=== PATIENT | female | born 1995 | race Caucasian/White ===

== ENCOUNTER 2019-01-14 18:11 | Emergency (ER) | payer MEDICAID ==
[~2019-01-14] VITALS: Ht 162.6 cm; Wt 44.9 kg
[2019-01-14 18:27] VITALS: BP 106/55
== END 2019-01-15 00:17 | disposition home or self-care (01) ==
LOC: ER 18:11
DX: S63.91XA Sprain of unspecified part of right wrist and hand, initial encounter (principal); F17.210 Nicotine dependence, cigarettes, uncomplicated; W19.XXXA Unspecified fall, initial encounter; Y93.89 Activity, other specified; Y92.89 Other specified places as the place of occurrence of the external cause; Y99.8 Other external cause status
CPT/HCPCS: 73120

== ENCOUNTER 2019-11-03 23:17 | Emergency (ER) | payer MEDICAID ==
[~2019-11-03] VITALS: Ht 162.6 cm; Wt 48.5 kg
[2019-11-04 00:33] LABS: Urine Bacteria FEW /hpf (None Seen); Urine Blood Negative /uL (Negative); Urine Mucus FEW (None Seen); Urine Specific Gravity 1.029 (1.001-1.035); Urine WBC <1 /hpf (0 - 5)
[2019-11-04 01:06] LABS: Basophils # (auto) 0 10 ^3/uL (0-0.2); Basophils % (auto) 0.4 % (0.0-2.0); Eosinophils # (auto) 0.1 10 ^3/uL (0-0.8); Eosinophils % (auto) 0.9 % (0.0-7.0); Hematocrit 44.4 % (36.0-46.0); Hemoglobin 15.7 g/dL (12.2-16.2); Mean Corpuscular Hemoglobin 32.5 pg (28.0-32.0); Mean Corpuscular Hgb Conc. 35.5 g/dL (32.0-36.0); Mean Corpuscular Volume 91.7 fL (80.0-100.0); Monocytes # (auto) 0.6 10 ^3/uL (0-1.3); Monocytes % (auto) 6.3 % (0.0-12.0); Neutrophils % (auto) 69.4 % (37.0-80.0); Platelet Count (auto) 154 10^3/uL (140-450); Red Blood Cells 4.84 10^6/uL (4.0-5.20); Red Cell Distribution Width 13.1 % (11.8-14.3); White Blood Cell 8.7 10^3/uL (4.4-10.8)
[2019-11-04 01:21] LABS: INR 1.01 (0.9-1.15)
[2019-11-04 01:24] LABS: Albumin 4.4 g/dL (3.4-5.0); Calcium 8.9 mg/dL (8.5-10.1); Potassium 4.1 mmol/L (3.5-5.1)
[2019-11-04 01:27] LABS: BUN/Creatinine Ratio 23.1
[2019-11-04 01:30] LABS: Bilirubin, Total 0.4 mg/dL (0.2-1.0); Total Protein 7.9 g/dL (6.4-8.2)
[2019-11-04 02:39] VITALS: BP 101/63
[2019-11-04] MEDS ORDERED: IOHEXOL 300 MG/ML 100ML BOTTLE IJ ONE (02:42)
[2019-11-04] MEDS ORDERED: KETOROLAC TROMETH 15 mg/ml 1ML VL IV ONE ×2 (04:00→04:15)
== END 2019-11-04 04:50 | disposition home or self-care (01) ==
LOC: ER 23:17
DX: N94.89 Other specified conditions associated with female genital organs and menstrual cycle (principal); N83.201 Unspecified ovarian cyst, right side; K92.1 Melena; J41.0 Simple chronic bronchitis; F17.210 Nicotine dependence, cigarettes, uncomplicated
CPT/HCPCS: 36415; 74018; 74177; 80053; 81001; 81025; 85025; 85610; 96374; 99285; J1885; Q9967

== ENCOUNTER 2022-05-03 14:32 | Inpatient (IN) | payer MEDICAID ==
[~2022-05-03] VITALS: Ht 162.6 cm; Wt 45.6 kg
[2022-05-03] MEDS ORDERED: SODIUM CHLORIDE 0.9% 2,000 ML IV ONE (15:15)
[2022-05-03] MEDS ORDERED: LACTATED RINGER'S 2,000 ML IV ONE (15:15)
[2022-05-03] MEDS ORDERED: DEXTROSE (50%) 50ML SYRG IV PRN ×2 (15:30→19:15)
[2022-05-03] MEDS ORDERED: SODIUM BICARBONATE 50ML VIAL 150 ML in SOD CHL 0.45% 1,000 ML IV ONE (15:30)
[2022-05-03] MEDS ORDERED: SODIUM BICARBONATE 8.4 % INJ 50ML VIAL IV ONE ×2 (15:30→19:15)
[2022-05-03 16:07] LABS: Hematocrit 52.8 % (36.0-46.0); Hemoglobin 16.7 g/dL (12.2-16.2); Mean Corpuscular Hgb Conc. 31.6 g/dL (32.0-36.0); Mean Corpuscular Volume 98.1 fL (80.0-100.0); Red Blood Cells 5.38 10^6/uL (4.0-5.20); Red Cell Distribution Width 12.2 % (11.8-14.3)
[2022-05-03 16:15] LABS: White Blood Cell 56.1 10^3/uL (4.4-10.8)
[2022-05-03 16:16] LABS: Basophils % (manual) 0 (0.0-2.0); Blast Cells 0; Eosinophils % (manual) 0 (0-7); Myelocytes % 0; Promyelocytes % 0; Reactive Lymphocytes 0
[2022-05-03 16:26] LABS: Magnesium 2.9 mg/dL (1.6-2.6)
[2022-05-03 16:58] LABS: Urine Bacteria FEW /hpf (None Seen); Urine Blood 1+ /uL (Negative); Urine Specific Gravity 1.015 (1.001-1.035); Urine WBC 2 /hpf (0 - 5)
[2022-05-03 17:42] LABS: Band Neutrophils % (manual) 20; Lymphocytes % (manual) 10 (10.0-50.0); Monocytes % (manual) 8 (0-12)
[2022-05-03 17:43] LABS: Metamyelocytes % 1
[2022-05-03 17:47] LABS: Albumin 3.5 g/dL (3.4-5.0); Calcium 7.1 mg/dL (8.5-10.1); Potassium 5.1 mmol/L (3.5-5.1)
[2022-05-03 17:49] LABS: Bilirubin, Total 0.7 mg/dL (0.2-1.0); Total Protein 6.4 g/dL (6.4-8.2)
[2022-05-03 17:51] LABS: BUN/Creatinine Ratio 18.3
[2022-05-03] MEDS: ACCU-CHEK COMFORT CURVE STRIP VI SCH ×5 (17:55→22:57)
[2022-05-03] MEDS: InsuLIN R (HUMAN) 100 UNITS in SODIUM CHL 0.9% 99 ML IV SCH (17:59)
[2022-05-03] MEDS ORDERED: ONDANSETRON HCL 4 MG/2 ML VIAL IV PRN (18:45)
[2022-05-03] MEDS ORDERED: MORPHINE SULFATE INJ 2 MG/ml SYRG IV PRN (18:45)
[2022-05-03] MEDS ORDERED: NITROGLYCERIN 0.4 MG SL TAB SL PRN (18:45)
[2022-05-03] MEDS ORDERED: INSULIN LANTUS (GLARGINE) 1 /0.01ml (100units/ml) SC ONE (19:15)
[2022-05-03] MEDS ORDERED: POTASSIUM CHL 20MEQ/100ML 200 ML IV PRN (19:15)
[2022-05-03] MEDS ORDERED: MAGNESIUM SULFATE 1GM/100ML 200 ML IV ONE (19:15)
[2022-05-03] MEDS ORDERED: D5W/SOD CHL 0.45%/KCL 20MEQ 1,000 ML IV SCH ×2 (19:15)
[2022-05-03] MEDS ORDERED: POTASSIUM CHL 20MEQ/100ML 100 ML IV PRN (19:15)
[2022-05-03] MEDS ORDERED: VANCOMYCIN PER PHARMACY 0 MG IV SCH (19:30)
[2022-05-03] MEDS ORDERED: VANCOMYCIN 1GM/250ML 250 ML IV ONE (20:00)
[2022-05-03 20:06] LABS: Alcohol, Urine < 3.0 mg/dL (0-10); Amphetamine Screen, Urine NEGATIVE (NEGATIVE); Barbiturate Scree,Urine NEGATIVE (NEGATIVE); Benzodiazephine Screen, Urine NEGATIVE (NEGATIVE); Cannabinoid Screen, Urine POSITIVE (NEGATIVE); Cocaine Screen, Urine NEGATIVE (NEGATIVE); Opiate Scree,Urine NEGATIVE (NEGATIVE); Phencyclidine Screen, Urine NEGATIVE (NEGATIVE)
[2022-05-03 22:38] LABS: BUN/Creatinine Ratio 18.9; Calcium 6.6 mg/dL (8.5-10.1); Potassium 3.5 mmol/L (3.5-5.1)
[2022-05-03] MEDS: SOD CHL 0.9%/ KCL 20MEQ 1,000 ML IV SCH (23:19)
[2022-05-04] MEDS: ACCU-CHEK COMFORT CURVE STRIP VI SCH ×10 (00:25→20:00)
[2022-05-04] MEDS: PIPERACILLIN-TAZOB 3.375GM 100 ML IV SCH ×4 (00:25→23:01)
[2022-05-04] MEDS: SOD CHL 0.9%/ KCL 20MEQ 1,000 ML IV SCH (01:55)
[2022-05-04 03:05] LABS: Hematocrit 37.9 % (36.0-46.0); Hemoglobin 13.2 g/dL (12.2-16.2); Mean Corpuscular Hemoglobin 31.4 pg (28.0-32.0); Mean Corpuscular Hgb Conc. 34.9 g/dL (32.0-36.0); Red Blood Cells 4.21 10^6/uL (4.0-5.20); Red Cell Distribution Width 11.9 % (11.8-14.3); White Blood Cell 24.3 10^3/uL (4.4-10.8)
[2022-05-04 03:24] LABS: Albumin 2.9 g/dL (3.4-5.0); Basophils % (manual) 0 (0.0-2.0); Blast Cells 0; Calcium 6.6 mg/dL (8.5-10.1); Eosinophils % (manual) 0 (0-7); Metamyelocytes % 0; Myelocytes % 0; Promyelocytes % 0; Reactive Lymphocytes 0
[2022-05-04 03:51] LABS: Phosphorus 0.6 mg/dL (2.5-4.90)
[2022-05-04 05:35] LABS: Band Neutrophils % (manual) 25; Lymphocytes % (manual) 5 (10.0-50.0); Monocytes % (manual) 4 (0-12)
[2022-05-04] MEDS ORDERED: POTASSIUM PHOSPHATE 26.4 MEQ in SODIUM CHL 0.9% 100 ML IV ONE (06:00)
[2022-05-04] MEDS ORDERED: INSULIN LANTUS (GLARGINE) 1 /0.01ml (100units/ml) SC SCH (10:00)
[2022-05-04 10:08] LABS: Calcium 7.5 mg/dL (8.5-10.1); Potassium 3.1 mmol/L (3.5-5.1)
[2022-05-04] MEDS: InsuLIN R (HUMAN) 100 UNITS in SODIUM CHL 0.9% 99 ML IV SCH (11:27)
[2022-05-04] MEDS ORDERED: FUROSEMIDE 20 MG/2 ML VIAL IV ONE (12:15)
[2022-05-04] MEDS ORDERED: DEXTROSE (50%) 50ML SYRG IV PRN (12:30)
[2022-05-04 12:58] LABS: Phosphorus 0.9 mg/dL (2.5-4.90)
[2022-05-04] MEDS ORDERED: POTASSIUM PHOSPHATE 44 MEQ in D5W 5% 250 ML IV ONE (13:00)
[2022-05-04] MEDS ORDERED: POTASSIUM EFFERVESENT TAB 25 MEQ PO ONE (14:00)
[2022-05-04] MEDS: InsuLIN REG 1unit/0.01ml Soln (100units/ml) SC SCH ×2 (16:02→20:00)
[2022-05-04] MEDS ORDERED: SODIUM CHLORIDE 0.9% 1,000 ML IV SCH (20:30)
[2022-05-04 22:00] VITALS: BP 112/70
[2022-05-04 22:25] VITALS: BP 112/70
[2022-05-04] MEDS: INSULIN LANTUS (GLARGINE) 1 /0.01ml (100units/ml) SC SCH (22:56)
[2022-05-05] MEDS: InsuLIN REG 1unit/0.01ml Soln (100units/ml) SC SCH ×7 (04:00→23:46)
[2022-05-05 05:00] VITALS: BP 101/63
[2022-05-05] MEDS: ACCU-CHEK COMFORT CURVE STRIP VI SCH ×7 (05:45→23:47)
[2022-05-05] MEDS: PIPERACILLIN-TAZOB 3.375GM 100 ML IV SCH ×3 (05:47→23:33)
[2022-05-05 07:31] LABS: Basophils # (auto) 0.1 10 ^3/uL (0-0.2); Basophils % (auto) 0.3 % (0.0-2.0); Eosinophils # (auto) 0 10 ^3/uL (0-0.8); Eosinophils % (auto) 0.1 % (0.0-7.0); Hematocrit 40.1 % (36.0-46.0); Hemoglobin 14.1 g/dL (12.2-16.2); Lymphocytes # (auto) 1.4 10 ^3/uL (0.4-5.4); Lymphocytes % (auto) 5.8 % (10.0-50.0); Mean Corpuscular Hemoglobin 31.1 pg (28.0-32.0); Mean Corpuscular Hgb Conc. 35.2 g/dL (32.0-36.0); Mean Corpuscular Volume 88.4 fL (80.0-100.0); Monocytes # (auto) 1.2 10 ^3/uL (0-1.3); Monocytes % (auto) 5.2 % (0.0-12.0); Neutrophils # (auto) 20.7 10 ^3/uL (1.6-8.6); Neutrophils % (auto) 88.6 % (37.0-80.0); Red Blood Cells 4.54 10^6/uL (4.0-5.20); Red Cell Distribution Width 12.2 % (11.8-14.3); White Blood Cell 23.4 10^3/uL (4.4-10.8)
[2022-05-05 07:53] LABS: Anion Gap 14 (5-15); BUN/Creatinine Ratio 16.3; Blood Urea Nitrogen 24 mg/dL (7-18); Calcium 7.7 mg/dL (8.5-10.1); Carbon Dioxide 18 mmol/L (21-32); Chloride 109 mmol/L (98-107); GFR African American 55 mL/min; GFR Non-African American 45 mL/min; Glucose 69 mg/dL (74-106); Phosphorus 3.6 mg/dL (2.5-4.90); Sodium 141 mmol/L (136-145)
[2022-05-05 08:05] LABS: Potassium 2.5 mmol/L (3.5-5.1)
[2022-05-05] MEDS ORDERED: POTASSIUM EFFERVESENT TAB 25 MEQ PO ONE (08:45)
[2022-05-05 09:00] VITALS: BP 103/63
[2022-05-05] MEDS ORDERED: POTASSIUM CHL 20 Meq TABLET PO ONE (09:45)
[2022-05-05] MEDS: POTASSIUM CHL 20 Meq TABLET PO SCH ×2 (10:32→12:10)
[2022-05-05 13:00] VITALS: BP 100/72
[2022-05-05 16:38] LABS: BUN/Creatinine Ratio 16.3; Calcium 7.9 mg/dL (8.5-10.1); Potassium 3.2 mmol/L (3.5-5.1)
[2022-05-05 16:40] LABS: Bilirubin, Total 0.9 mg/dL (0.2-1.0); Total Protein 5.8 g/dL (6.4-8.2)
[2022-05-05 17:00] VITALS: BP 97/63
[2022-05-05 22:00] VITALS: BP 100/64
[2022-05-05] MEDS: INSULIN LANTUS (GLARGINE) 1 /0.01ml (100units/ml) SC SCH (23:46)
[2022-05-06] MEDS: InsuLIN REG 1unit/0.01ml Soln (100units/ml) SC SCH ×2 (04:00→08:00)
[2022-05-06] MEDS: ACCU-CHEK COMFORT CURVE STRIP VI SCH ×2 (04:11→08:17)
[2022-05-06 05:00] VITALS: BP 105/67
[2022-05-06 05:07] LABS: Basophils # (auto) 0 10 ^3/uL (0-0.2); Basophils % (auto) 0.3 % (0.0-2.0); Eosinophils # (auto) 0 10 ^3/uL (0-0.8); Eosinophils % (auto) 0.4 % (0.0-7.0); Hematocrit 38.5 % (36.0-46.0); Hemoglobin 13.4 g/dL (12.2-16.2); Lymphocytes % (auto) 15.8 % (10.0-50.0); Mean Corpuscular Hemoglobin 31.5 pg (28.0-32.0); Mean Corpuscular Hgb Conc. 34.7 g/dL (32.0-36.0); Mean Corpuscular Volume 90.6 fL (80.0-100.0); Monocytes # (auto) 0.7 10 ^3/uL (0-1.3); Monocytes % (auto) 5.7 % (0.0-12.0); Neutrophils # (auto) 9.9 10 ^3/uL (1.6-8.6); Neutrophils % (auto) 77.8 % (37.0-80.0); Red Blood Cells 4.25 10^6/uL (4.0-5.20); Red Cell Distribution Width 12.3 % (11.8-14.3); White Blood Cell 12.7 10^3/uL (4.4-10.8)
[2022-05-06 05:29] LABS: BUN/Creatinine Ratio 16.2
[2022-05-06] MEDS: PIPERACILLIN-TAZOB 3.375GM 100 ML IV SCH (05:30)
[2022-05-06 05:53] LABS: Potassium 2.6 mmol/L (3.5-5.1)
[2022-05-06] MEDS ORDERED: POTASSIUM CHL 20 Meq TABLET PO ONE (06:00)
[2022-05-06 09:00] VITALS: BP 109/74
[2022-05-06] MEDS: POTASSIUM CHL 20 Meq TABLET PO SCH ×2 (11:47→12:15)
[2022-05-06 12:52] VITALS: BP 122/86
[2022-05-06 15:43] VITALS: BP 114/77
== END 2022-05-06 16:20 | disposition home or self-care (01) | DRG 420 ==
LOC: ER 14:32 → EDBD 14:32 → TELE 19:00 → TELE-WESTW 05-04 21:31
PROVIDERS: ADMIT Nurse Practitioner Family; ATTEND Internal Medicine Nephrology
DX: E11.10 Type 2 diabetes mellitus with ketoacidosis without coma (principal); R65.20 Severe sepsis without septic shock; G93.49 Other encephalopathy; J18.9 Pneumonia, unspecified organism; J90 Pleural effusion, not elsewhere classified; N17.9 Acute kidney failure, unspecified; A41.9 Sepsis, unspecified organism; D72.829 Elevated white blood cell count, unspecified; E11.65 Type 2 diabetes mellitus with hyperglycemia; E86.0 Dehydration; E03.9 Hypothyroidism, unspecified; Z20.822 Contact with and (suspected) exposure to COVID-19; F12.90 Cannabis use, unspecified, uncomplicated; J98.11 Atelectasis; F17.210 Nicotine dependence, cigarettes, uncomplicated; Z72.89 Other problems related to lifestyle; Z71.6 Tobacco abuse counseling
CPT/HCPCS: 36415; 36600; 71045; 71250; 76604; 80048; 80053; 80069; 80202; 80307; 80320; 81001; 81025; 82010; 82805; 82962; 83036; 83605; 83690; 83735; 83880; 83930; 84100; 84132; 84484; 84702; 85007; 85025; 85027; 86703; 87040; 87070; 87086; 87088; 87205; 93005; 93306; 96361; 96365; 96368; 96375; 99291; G0378; J1815; J2405; J2543; J7060

== ENCOUNTER 2024-03-04 02:23 | Emergency (ER) | payer MEDICAID ==
[~2024-03-04] VITALS: Ht 152.4 cm; Wt 48.3 kg
[2024-03-04 02:30] VITALS: TEMP 97.6
[2024-03-04] MEDS ORDERED: CYCL-837 PO (02:54)
[2024-03-04] MEDS ORDERED: LIDO5DIS21 TOP (02:57)
[2024-03-04] MEDS: KETOROLAC TROMETH 30 MG/ML 1ML VIAL IM ONE (03:01)
[2024-03-04 03:29] VITALS: O2SAT 99
[2024-03-04 03:42] VITALS: BP 100/57; PULSE 18; RESP 60
== END 2024-03-04 06:10 | disposition home or self-care (01) ==
LOC: ER 02:23
DX: M54.30 Sciatica, unspecified side (principal); E11.9 Type 2 diabetes mellitus without complications; F12.10 Cannabis abuse, uncomplicated
CPT/HCPCS: 96372; 99283; J1885

== ENCOUNTER 2024-06-30 18:59 | Emergency (ER) | payer MEDICAID ==
[~2024-06-30] VITALS: Ht 162.6 cm; Wt 103.0 kg
[~2024-06-30 18:59] MED LIST: CYCL-837 PO; LIDO5DIS21 TOP
--- NOTE | 2024-06-30 19:35 | ED.PDOC ---
Back pain HPI HPI Comments 29y F who presents to the ED for chief complaint of back pain. Pt states she has been having L sided lower back pain for the past 3 weeks. Pt states the pain is achy and dulll in nature, intermittent, non-radiating, with associated exacerbation of pain with deep breaths and no relieving factors. Pt states she has been having fever and chills but denies chest pain, shortness of breath, headache, dizziness, nausea, vomiting, dysuria, hematuria, or cough. Pt denies any associated recent trauma or injury. Pt denies any recent sick contacts. Pt denies any other symptoms at this time. Chief Complaint: back pain Time Seen by MD: 19:31 Primary Care Provider: FABIAN Reviewed Notes: Nurses Notes, Youth Specialist Notes, Medications Allergies: Coded Allergies: NO KNOWN ALLERGIES (Unverified , 07/02/15) Home Meds Active Scripts Tramadol Hcl (Tramadol Hcl) 50 Mg Tab, 50 MG PO Q12HP PRN for 5 Days, #10 TAB Prov:SISSY CHURCHILL MD 06/30/24 Lidocaine (LIDODERM 5% TOPICAL PATCH) 1 Patch Ph, 1 PATCH TOP DAILY, #10 PATCH Prov:JESSE KNIGHT 03/04/24 Cyclobenzaprine Hcl (Cyclobenzaprine Hcl) 5 Mg Tab, 1 TAB PO TID, #20 TAB Prov:JESSE KNIGHT 03/04/24 Information Source: Patient Mode of Arrival: Ambulatory Brought in by: self Timing: Weeks Duration: Since onset Location of Back pain: (L) Lumbar Severity: Moderate Prehospital treatment: None Quality: Aching Onset: Spontaneous History of: Other (DM) Modifying Factors: Breathing Associated signs and symptoms: None Past Medical History PAST MEDICAL HISTORY: DM Surgical History: Denies all surgeries [employer]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: No Pertinent [employer]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 Family History Family History: Unknown Social History Smoker: Quit Less Than 1 Year Alcohol: Denies ETOH Use Drugs: Marijuana Lives In: Home Constitutional: denies: chills, diaphoresis, fatigue, fever, malaise, sweats, weakness, others EENTM: denies: blurred vision, double vision, ear bleeding, ear discharge, ear drainage, ear pain, ear ringing, eye pain, eye redness, hearing loss, mouth pain, mouth swelling, nasal discharge, nose bleeding, nose congestion, nose pain, photophobia, tearing, throat pain, throat swelling, voice changes, others Respiratory: denies: cough, hemoptysis, orthopnea, SOB at rest, shortness of breath, SOB with excertion, stridor, wheezing, others Cardiovascular: denies: chest pain, dizzy spells, diaphoresis, Dyspnea on exertion, edema, irregular heart beat, left arm pain, lightheadedness, palpitations, PND, syncope, others Gastrointestinal: denies: abdomen distended, abdominal pain, blood streaked bowels, constipated, diarrhea, dysphagia, difficulty swallowing, hematemesis, melena, nausea, poor appetite, poor fluid intake, rectal bleeding, rectal pain, vomiting, others Genitourinary: denies: abnormal vagina bleeding, burning, dyspareunia, dysuria, flank pain, frequency, hematuria, incontinence, pain, , vagina discharge, urgency, others Neurological: denies: dizziness, fainting, headache, left sided numbness, left sided weakness, numbness, paresthesia, pre-existing deficit, right sided numbness, right sided weakness, seizure, speech problems, tingling, tremors, weakness, others Musculoskeletal: reports: back pain; denies: gout, joint pain, joint swelling, muscle pain, muscle stiffness, neck pain, others Integumetry: denies: bruises, change in color, change in hair/nails, dryness, laceration, lesions, lumps, rash, wounds, others Allergic/Immunocompromised: denies: Difficulty Healing, Frequent Infections, Hives, Itching, others Hematologic/Lymphatic: denies: anemia, blood clots, easy bleeding, easy bruising, swollen glands, others Endocrine: denies: excessive hunger, excessive sweating, excessive thirst, excessive urination, flushing, intolerance to cold, intolerance to heat, un explained weight gain, unexplained weight loss, others Psychiatric: denies: anxiety, bipolar disorder, depression, hopeless, panic disorder, schizophrenia, sleepless, suicidal, others All Other Systems: Reviewed and Negative Physical Exam General Appearance: No Apparent Distress HEENT: Normal ENT Inspection, Pharynx Normal, TMs Normal Neck: Full Range of Motion, Non-Tender, Normal, Normal Inspection Respiratory: Chest Non-Tender, Lungs Clear, No Accessory Muscle Use, No Respiratory Distress, Normal Breath Sounds Cardiovascular: No Edema, No JVD, No Murmur, No Gallop, Normal Peripheral Pulses, Regular Rate/Rhythm Breast Exam: Deferred Gastrointestinal: No Organomegaly, Non Tender, No Pulsatile Mass, Normal Bowel Sounds, Soft Genitalia: Deferred Pelvic: Deferred Rectal: Deferred Extremities: No calf tenderness, Normal capillary refill, Normal inspection, Normal range of motion, Non-tender, No pedal edema Musculoskeletal : Location: Left Extremity Location: Back Apperance: Tenderness: Mild Neurologic: Alert, associate financial advisor II-XII nml as Tested, No Motor Deficits, Normal Affect, Normal Mood, No Sensory Deficits Cerebellar Function: Normal Reflexes: Normal Skin: Dry, Normal Color, Warm Lymphatic: No Adenopathy Was a procedure done? Was a procedure done?: No Back Pain Differential Dx Differential Diagnosis: Cholelithiasis, Cholangitis, DJD, Musculoskeletal Pain, Pancreatits Other Differential Diagnosis chronic back pain X-Ray, Labs, Meds, VS XY CHEST TWO VIEWS ROUTINE IMPRESSION: No acute cardiopulmonary disease. The patient was being discharged and will follow up with the primary care doctor The patient will return to the emergency department's condition worsens The diagnosis is musculoskeletal pain Images Reviewed?: Images reviewed and evaluated by me Time of 1ST Reevaluation: 20:05 Reevaluation 1ST: Unchanged Patient Education/Counseling: Diagnosis, Treatment, Prognosis, Need For Follow Up Family Education/Counseling: No Family Present Departure 1 Departure Time of Disposition: 20:23 Impression: Primary Impression: Musculoskeletal pain Disposition: 01 HOME / SELF CARE / HOMELESS Condition: Fair e-Prescriptions Tramadol Hcl (Tramadol Hcl) 50 Mg Tab 50 MG PO Q12HP PRN for 5 Days, #10 TAB Prov: SISSY CHURCHILL MD 06/30/24 Discharged With: Self Critical Care Note Critical Care Time?: No Stability Stability form required: No Heart Score Heart Score: Heart Score Response (Comments) Value History N/A 0 EKG N/A 0 Age N/A 0 Risk Factors N/A 0 Troponin N/A 0 Total 0 I personally scribed for SISSY CHURCHILL MD ([email or web address]) on 06/30/24 at 19:34. Electronically submitted by Bryan Jimenes ([email or web address]). I personally scribed for SISSY CHURCHILL MD ([email or web address]) on 06/30/24 at 20:05. Electronically submitted by Bryan Jimenes ([email or web address]). SISSY CHURCHILL MD Jun 30, 2024 19:34
--- NOTE | 2024-06-30 19:54 | DVH ---
XY CHEST TWO VIEWS ROUTINE CLINICAL HISTORY: left upper back pain COMPARISON: None TECHNIQUE: Frontal and lateral view of the chest was obtained FINDINGS: Lines and Tubes: None Lungs: No focal consolidation. Pleura: No effusion. No pneumothorax. Cardiomediastinal contours: Unremarkable Bones: No acute osseous abnormality. IMPRESSION: No acute cardiopulmonary disease.
[2024-06-30] MEDS ORDERED: TRAM50TA2 PO (20:25)
[2024-06-30 20:40] VITALS: RESP 16; O2SAT 96
[2024-06-30 21:49] VITALS: BP 107/56; PULSE 65; RESP 16; TEMP 97.7; O2SAT 96
== END 2024-06-30 21:55 | disposition home or self-care (01) ==
LOC: ER 18:59
DX: M54.59 Other low back pain (principal); E11.9 Type 2 diabetes mellitus without complications; F12.90 Cannabis use, unspecified, uncomplicated; Z79.899 Other long term (current) drug therapy
CPT/HCPCS: 71046